=== PATIENT | female | born 1960 | race Caucasian/White ===

== ENCOUNTER → 2016-05-11 | Outpatient (CLI) | payer MEDICARE, OTHER, MEDICAID ==
[~2016-05-11] MED LIST: ACCURETIC 12.51 TAB PO; CETIRIZINE HCL10 MG PO; CLARINEX 5MG5 MG PO; CYMBALTA 20MG20 MG PO; FISH OIL 11600 MG/5; JANUMET 1000 MG1 TA1 PO; LEVOTHYROXINE100 MC1 PO; MAGNESIUM ELEM300 MG PO; NEURONTIN300 MG/CAP PO; PROBIOTIC1 EAC1 PO; RESTORIL30 M1 PO; SKELAXIN 800MG800 MG PO; TRAZODONE50 MG PO; ZETIA 10MG TAB10 MG PO
== END ==
LOC: RAD 08:28
DX: M25.512 Pain in left shoulder (principal); M25.511 Pain in right shoulder; W19.XXXA Unspecified fall, initial encounter

== ENCOUNTER → 2016-05-12 | Outpatient (CLI) | payer MEDICARE, OTHER, MEDICAID | LOC: LAB 14:41 | DX: E13.9 Other specified diabetes mellitus without complications (principal); E78.2 Mixed hyperlipidemia; E03.4 Atrophy of thyroid (acquired); K90.9 Intestinal malabsorption, unspecified; G63 Polyneuropathy in diseases classified elsewhere; M81.0 Age-related osteoporosis without current pathological fracture ==

== ENCOUNTER 2016-05-17 09:05 | Outpatient (RCR) | payer MEDICARE, OTHER, MEDICAID ==
[2015-12-02 18:34] VITALS: BP 111/55
== END 2016-07-22 15:03 | disposition home or self-care (01) ==
LOC: PT 09:05
DX: M47.812 Spondylosis without myelopathy or radiculopathy, cervical region (principal)

== ENCOUNTER → 2016-09-08 | Outpatient (CLI) | payer MEDICARE, MEDICAID ==
[2015-12-02 18:34] VITALS: BP 111/55
== END ==
LOC: RAD 08:57
DX: M48.8X2 Other specified spondylopathies, cervical region (principal)

== ENCOUNTER → 2016-11-10 | Outpatient (CLI) | payer MEDICARE, MEDICAID ==
[2015-12-02 18:34] VITALS: BP 111/55
== END ==
LOC: LAB 07:24
DX: E11.8 Type 2 diabetes mellitus with unspecified complications (principal); E03.9 Hypothyroidism, unspecified; M81.0 Age-related osteoporosis without current pathological fracture; E78.2 Mixed hyperlipidemia; G63 Polyneuropathy in diseases classified elsewhere

== ENCOUNTER → 2017-01-02 | Outpatient (CLI) | payer MEDICARE, MEDICAID ==
[2015-12-02 18:34] VITALS: BP 111/55
== END ==
LOC: RAD 17:07
DX: M25.571 Pain in right ankle and joints of right foot (principal); M79.671 Pain in right foot

== ENCOUNTER → 2017-01-12 | Outpatient (CLI) | payer MEDICARE ==
[2015-12-02 18:34] VITALS: BP 111/55
[2017-01-12 08:58] LABS: EOS # 0.2 (0.04-0.40); EOS % 4.1 % (1.0-5.0); HEMATOCRIT 40.3 % (37.0-47.0); HEMOGLOBIN 13.4 g/dL (12.5-16.0); LYMPH# 1.2 (1.50-4.00); MEAN CELL VOLUME 94 fl (78-100); MEAN CORPUSCULAR HEMOGLOBIN 31 pg (27-31); MEAN CORPUSCULAR HGB CONC 33 g/dL (33-37); MONO # 0.5 (0.20-0.80); PLATELET COUNT 267 K/mm3 (130-400); RED CELL DISTRIBUTION WIDTH 13.4 % (11.5-14.5); WHITE BLOOD COUNT 4.9 K/mm3 (4.8-10.8)
[2017-01-12 09:10] LABS: ALBUMIN 4.2 g/dL (3.5-5.0); BUN/CREATININE RATIO 25.2 (6.0-26.0); CALCIUM 10.3 mg/dL (8.4-10.2); POTASSIUM 5.1 mmol/L (3.6-5.0); TOTAL BILIRUBIN 0.6 mg/dL (0.2-1.3); TOTAL PROTEIN 7.8 g/dL (6.3-8.2)
== END ==
LOC: LAB 08:46
PROVIDERS: Internal Medicine
DX: E13.9 Other specified diabetes mellitus without complications (principal); M81.0 Age-related osteoporosis without current pathological fracture; M10.9 Gout, unspecified; E03.4 Atrophy of thyroid (acquired)

== ENCOUNTER 2017-03-17 07:36 | Emergency (ER) | payer MEDICARE, MEDICAID ==
[~2017-03-17] VITALS: Ht 177.8 cm; Wt 110.9 kg
[~2017-03-17 07:36] MED LIST changes: -ACCURETIC 12.51 TAB PO; +ACCURETIC 25 MG1 TAB PO; -CYMBALTA 20MG20 MG PO; +CYMBALTA60 M1 PO; +FISH OIL 1,0001 EAC1 PO; -FISH OIL 11600 MG/5; +GABAPENTIN TAB600 MG PO; -LEVOTHYROXINE100 MC1 PO; -NEURONTIN300 MG/CAP PO; +SYNTHROID0.15 MG PO
[2017-03-17 08:03] LABS: BASO # 0.1 (0.02-0.10); EOS # 0.1 (0.04-0.40); EOS % 2.5 % (1.0-5.0); HEMOGLOBIN 14.2 g/dL (12.5-16.0); LYMPH# 1.1 (1.50-4.00); MEAN CELL VOLUME 92 fl (78-100); MEAN CORPUSCULAR HEMOGLOBIN 31 pg (27-31); MEAN CORPUSCULAR HGB CONC 34 g/dL (33-37); MEAN PLATELET VOLUME 8.5 fl (7.4-10.4); MONO # 0.6 (0.20-0.80); NEU # 3.3 (1.40-6.50); PLATELET COUNT 295 K/mm3 (130-400); RED BLOOD COUNT 4.59 M/mm3 (4.10-5.30); RED CELL DISTRIBUTION WIDTH 13.8 % (11.5-14.5); WHITE BLOOD COUNT 5.2 K/mm3 (4.8-10.8)
[2017-03-17 08:17] LABS: ALBUMIN 4.4 g/dL (3.5-5.0); BUN/CREATININE RATIO 25.6 (6.0-26.0); CALCIUM 10.2 mg/dL (8.4-10.2); POTASSIUM 4.8 mmol/L (3.6-5.0); TOTAL BILIRUBIN 0.6 mg/dL (0.2-1.3); TOTAL PROTEIN 7.5 g/dL (6.3-8.2)
[2017-03-17] MEDS ORDERED: BACLOFEN20 MG PO (09:25)
[2017-03-17] MEDS ORDERED: LORAZEPAM0.5 M1 PO (09:27)
[2017-03-17] MEDS ORDERED: MORPHINE SULFAT15 M7 PO (10:16)
[2017-03-17 10:25] VITALS: BP 109/58
[2017-03-17] MEDS ORDERED: FENOFIBRATE160 MG PO (11:08)
[2017-03-17] MEDS ORDERED: ACID REDUCER 1150 MG PO (11:10)
[2017-03-17] MEDS ORDERED: VICTOZA 3-0.6 MG/0.1 SQ (11:11)
[2017-03-17] MEDS ORDERED: LINZESS145 MCG (11:13)
[2017-03-17] MEDS ORDERED: GLUCOPHAGE PO (11:13)
[2017-03-17] MEDS ORDERED: VITAMIN C PURE500 M1 (11:14)
[2017-03-17] MEDS ORDERED: IRON90 MG (11:15)
[2017-03-17] MEDS ORDERED: ZYLOPRIM 100MG100 MG PO (11:16)
[2017-03-17] MEDS ORDERED: ASPIRIN E.C. 8181 MG (11:17)
[2017-03-17] MEDS ORDERED: ONE DAILY ESSE1 EACH (11:17)
== END 2017-03-17 10:30 | disposition home or self-care (01) ==
LOC: ED 07:36
PROVIDERS: Physician Assistant
DX: M54.5 Low back pain (principal); S40.011A Contusion of right shoulder, initial encounter; S50.812A Abrasion of left forearm, initial encounter; S70.01XA Contusion of right hip, initial encounter; W01.10XA Fall on same level from slipping, tripping and stumbling with subsequent striking against unspecified object, initial encounter; R11.0 Nausea; Y92.009 Unspecified place in unspecified non-institutional (private) residence as the place of occurrence of the external cause; E11.9 Type 2 diabetes mellitus without complications; K21.9 Gastro-esophageal reflux disease without esophagitis; E78.5 Hyperlipidemia, unspecified; E03.9 Hypothyroidism, unspecified; G47.33 Obstructive sleep apnea (adult) (pediatric); E75.6 Lipid storage disorder, unspecified; M81.0 Age-related osteoporosis without current pathological fracture; Z79.84 Long term (current) use of oral hypoglycemic drugs; Z88.5 Allergy status to narcotic agent
CPT/HCPCS: J1885; J2270; J2550

== ENCOUNTER → 2017-04-13 | Outpatient (CLI) | payer MEDICARE ==
[2017-03-17 10:25] VITALS: BP 109/58
[~2017-04-13] MED LIST changes: +ACID REDUCER 1150 MG PO; +ASPIRIN E.C. 8181 MG; +BACLOFEN20 MG PO; +FENOFIBRATE160 MG PO; +GLUCOPHAGE PO; +IRON90 MG; +LINZESS145 MCG; +LORAZEPAM0.5 M1 PO; +MORPHINE SULFAT15 M7 PO; +ONE DAILY ESSE1 EACH; +VICTOZA 3-0.6 MG/0.1 SQ; +VITAMIN C PURE500 M1; +ZYLOPRIM 100MG100 MG PO
[2017-04-13 09:23] LABS: BASO # 0.1 (0.02-0.10); EOS # 0.2 (0.04-0.40); EOS % 3.9 % (1.0-5.0); HEMATOCRIT 42.4 % (37.0-47.0); LYMPH# 1.3 (1.50-4.00); MEAN CELL VOLUME 92 fl (78-100); MEAN CORPUSCULAR HEMOGLOBIN 30 pg (27-31); MEAN CORPUSCULAR HGB CONC 33 g/dL (33-37); MONO # 0.6 (0.20-0.80); PLATELET COUNT 281 K/mm3 (130-400); RED BLOOD COUNT 4.61 M/mm3 (4.10-5.30); RED CELL DISTRIBUTION WIDTH 13.8 % (11.5-14.5); WHITE BLOOD COUNT 5.1 K/mm3 (4.8-10.8)
[2017-04-13 09:36] LABS: ALBUMIN 4.4 g/dL (3.5-5.0); CALCIUM 9.8 mg/dL (8.4-10.2); POTASSIUM 4.8 mmol/L (3.6-5.0); TOTAL BILIRUBIN 0.6 mg/dL (0.2-1.3)
[2017-04-13 10:27] LABS: ERYTHROCYTE SEDIMENTATION RATE 18 mm/hr (0-30)
== END ==
LOC: LAB 09:10
PROVIDERS: Internal Medicine
DX: E13.9 Other specified diabetes mellitus without complications (principal); M81.0 Age-related osteoporosis without current pathological fracture; G63 Polyneuropathy in diseases classified elsewhere; E78.2 Mixed hyperlipidemia; E03.9 Hypothyroidism, unspecified; Z88.5 Allergy status to narcotic agent

== ENCOUNTER → 2017-07-18 | Outpatient (CLI) | payer MEDICARE | LOC: RAD 07:33 | DX: Z13.820 Encounter for screening for osteoporosis (principal); Z88.5 Allergy status to narcotic agent ==

== ENCOUNTER → 2017-07-18 | Outpatient (CLI) | payer MEDICARE | LOC: MAMMO 07:34 → RAD 08:30 | DX: Z12.31 Encounter for screening mammogram for malignant neoplasm of breast (principal); R92.8 Other abnormal and inconclusive findings on diagnostic imaging of breast; Z88.5 Allergy status to narcotic agent ==

== ENCOUNTER → 2017-08-25 | Outpatient (CLI) | payer MEDICARE ==
[2017-08-25 09:45] LABS: EOS # 0.2 (0.04-0.40); EOS % 3.7 % (1.0-5.0); HEMATOCRIT 41.3 % (37.0-47.0); HEMOGLOBIN 13.5 g/dL (12.5-16.0); LYMPH# 1.1 (1.50-4.00); MEAN CELL VOLUME 94 fl (78-100); MEAN CORPUSCULAR HEMOGLOBIN 31 pg (27-31); MEAN CORPUSCULAR HGB CONC 33 g/dL (33-37); MONO # 0.5 (0.20-0.80); NEU # 2.8 (1.40-6.50); PLATELET COUNT 260 K/mm3 (130-400); RED BLOOD COUNT 4.41 M/mm3 (4.10-5.30); RED CELL DISTRIBUTION WIDTH 13.5 % (11.5-14.5); WHITE BLOOD COUNT 4.6 K/mm3 (4.8-10.8)
[2017-08-25 09:55] LABS: ALBUMIN 4.3 g/dL (3.5-5.0); BUN/CREATININE RATIO 15.5 (6.0-26.0); CALCIUM 9.6 mg/dL (8.4-10.2); POTASSIUM 4.8 mmol/L (3.6-5.0); TOTAL BILIRUBIN 0.5 mg/dL (0.2-1.3); TOTAL PROTEIN 8.1 g/dL (6.3-8.2)
[2017-08-25 10:24] LABS: URINE APPEARANCE HAZY; URINE BILIRUBIN NEGATIVE (NEGATIVE); URINE BLOOD NEGATIVE (NEGATIVE); URINE COLOR YELLOW; URINE GLUCOSE NEGATIVE (NEGATIVE); URINE KETONE NEGATIVE (NEGATIVE); URINE LEUKOCYTE ESTERASE 2+ (NEGATIVE); URINE MUCUS PRESENT (NOT PRESENT); URINE NITRATE NEGATIVE (NEGATIVE); URINE PROTEIN(semi-quant) NEGATIVE (NEGATIVE); URINE UROBILINOGEN NORMAL (NORMAL)
[2017-08-25 11:16] LABS: ERYTHROCYTE SEDIMENTATION RATE 22 mm/hr (0-30)
== END ==
LOC: LAB 09:25
PROVIDERS: Internal Medicine
DX: Z12.11 Encounter for screening for malignant neoplasm of colon (principal); E11.9 Type 2 diabetes mellitus without complications; M81.0 Age-related osteoporosis without current pathological fracture; E78.2 Mixed hyperlipidemia; E03.9 Hypothyroidism, unspecified

== ENCOUNTER → 2017-08-29 | Outpatient (CLI) | payer MEDICARE | LOC: RAD 14:41 | DX: M25.851 Other specified joint disorders, right hip (principal); M25.852 Other specified joint disorders, left hip; I87.8 Other specified disorders of veins; M77.31 Calcaneal spur, right foot; M77.32 Calcaneal spur, left foot ==

== ENCOUNTER → 2017-11-20 | Outpatient (CLI) | payer MEDICARE | LOC: RAD 10:36 | DX: M79.641 Pain in right hand (principal) ==

== ENCOUNTER → 2018-01-01 | Outpatient (CLI) | payer MEDICARE ==
[2018-01-01 09:34] LABS: EOS # 0.1 (0.04-0.40); HEMOGLOBIN 12.9 g/dL (12.5-16.0); LYMPH# 1.1 (1.50-4.00); MEAN CELL VOLUME 94 fl (78-100); MEAN CORPUSCULAR HEMOGLOBIN 31 pg (27-31); MEAN CORPUSCULAR HGB CONC 33 g/dL (33-37); MEAN PLATELET VOLUME 8.9 fl (7.4-10.4); MONO # 0.5 (0.20-0.80); NEU # 2.5 (1.40-6.50); PLATELET COUNT 272 K/mm3 (130-400); RED BLOOD COUNT 4.16 M/mm3 (4.10-5.30); RED CELL DISTRIBUTION WIDTH 13.1 % (11.5-14.5); WHITE BLOOD COUNT 4.3 K/mm3 (4.8-10.8)
[2018-01-01 09:44] LABS: ALBUMIN 4.1 g/dL (3.5-5.0); CALCIUM 9.5 mg/dL (8.4-10.2); POTASSIUM 4.9 mmol/L (3.6-5.0); TOTAL BILIRUBIN 0.6 mg/dL (0.2-1.3); TOTAL PROTEIN 7.2 g/dL (6.3-8.2)
[2018-01-01 10:49] LABS: URINE APPEARANCE HAZY; URINE COLOR YELLOW; URINE PROTEIN(semi-quant) TRACE mg/dL (NEGATIVE)
[2018-01-01 10:50] LABS: URINE BILIRUBIN NEGATIVE (NEGATIVE); URINE GLUCOSE NEGATIVE (NEGATIVE); URINE KETONE NEGATIVE (NEGATIVE); URINE NITRATE NEGATIVE (NEGATIVE); URINE UROBILINOGEN NORMAL (NORMAL)
[2018-01-01 10:51] LABS: URINE BLOOD TRACE (NEGATIVE); URINE LEUKOCYTE ESTERASE 2+ (NEGATIVE); URINE WBC 16-30 /hpf (0-3)
[2018-01-01 10:52] LABS: URINE MUCUS PRESENT (NOT PRESENT)
[2018-01-01 12:09] LABS: ERYTHROCYTE SEDIMENTATION RATE 10 mm/hr (0-30)
== END ==
LOC: LAB 08:09
PROVIDERS: Internal Medicine
DX: Z12.11 Encounter for screening for malignant neoplasm of colon (principal); E11.9 Type 2 diabetes mellitus without complications; E78.2 Mixed hyperlipidemia; E03.9 Hypothyroidism, unspecified; M81.0 Age-related osteoporosis without current pathological fracture

== ENCOUNTER → 2018-01-02 | Outpatient (CLI) | payer MEDICARE ==
[2018-01-02 09:42] LABS: URINE APPEARANCE HAZY; URINE COLOR YELLOW
[2018-01-02 09:43] LABS: URINE BILIRUBIN NEGATIVE (NEGATIVE); URINE BLOOD NEGATIVE (NEGATIVE); URINE GLUCOSE NEGATIVE (NEGATIVE); URINE KETONE NEGATIVE (NEGATIVE); URINE LEUKOCYTE ESTERASE 1+ (NEGATIVE); URINE NITRATE NEGATIVE (NEGATIVE); URINE PROTEIN(semi-quant) TRACE mg/dL (NEGATIVE); URINE UROBILINOGEN NORMAL (NORMAL)
[2018-01-02 09:44] LABS: URINE MUCUS PRESENT (NOT PRESENT)
== END ==
LOC: LAB 08:15
PROVIDERS: Internal Medicine
DX: N39.0 Urinary tract infection, site not specified (principal)

== ENCOUNTER → 2018-01-04 | Outpatient (CLI) | payer MEDICARE | LOC: LAB 07:21 | DX: Z12.11 Encounter for screening for malignant neoplasm of colon (principal) ==

== ENCOUNTER → 2018-04-03 | Outpatient (CLI) | payer MEDICARE | LOC: LAB 08:10 | DX: E11.9 Type 2 diabetes mellitus without complications (principal) ==

== ENCOUNTER 2018-04-18 16:03 | Observation (INO) | payer MEDICARE ==
[~2018-04-18] VITALS: Ht 172.7 cm; Wt 120.8 kg
[2018-04-18] MEDS ORDERED: SAXENDA3 MG/0.5 M SQ (16:31)
[2018-04-18] MEDS ORDERED: ACETAMINOPHEN-H1 TA1 PO (16:32)
[2018-04-18] MEDS ORDERED: LYRICA 25MG CAP25 MG PO (16:33)
[2018-04-18 16:49] LABS: CALCIUM 9.4 mg/dL (8.4-10.2); POTASSIUM 3.8 mmol/L (3.6-5.0)
[2018-04-18 22:08] VITALS: BP 144/78
[2018-04-18 22:12] VITALS: BP 144/78
[2018-04-18 23:00] VITALS: BP 144/78
[2018-04-18] MEDS ORDERED: MEDI-FIRST ASP325 MG PO (23:37)
[2018-04-18] MEDS ORDERED: NATURE'S BLEN2000 IU PO (23:43)
[2018-04-19 03:22] VITALS: BP 120/73
[2018-04-19 06:32] VITALS: BP 120/77
[2018-04-19 11:01] VITALS: BP 125/73
[2018-04-19 15:04] VITALS: BP 109/62
[2018-04-19 18:19] VITALS: BP 124/70
[2018-04-19 23:50] VITALS: BP 119/68
[2018-04-20 03:30] VITALS: BP 139/78
[2018-04-20 06:21] VITALS: BP 135/74
[2018-04-20 11:30] VITALS: BP 122/72
[2018-04-20] MEDS ORDERED: CYCLOBENZAPRINE10 M1 PO (11:39)
[2018-04-20] MEDS ORDERED: ACETAMINOPHEN-H1 TA2 PO (11:40)
[2018-04-20 14:15] VITALS: BP 113/52
== END 2018-04-20 14:28 | disposition home health service (06) ==
LOC: ED 16:03 → MED/SURG 21:22
PROVIDERS: ADMIT Physician Assistant
DX: S76.311A Strain of muscle, fascia and tendon of the posterior muscle group at thigh level, right thigh, initial encounter (principal); E11.42 Type 2 diabetes mellitus with diabetic polyneuropathy; R53.82 Chronic fatigue, unspecified; G89.29 Other chronic pain; M54.9 Dorsalgia, unspecified; G47.33 Obstructive sleep apnea (adult) (pediatric); E03.9 Hypothyroidism, unspecified; M32.9 Systemic lupus erythematosus, unspecified; E78.5 Hyperlipidemia, unspecified; M19.90 Unspecified osteoarthritis, unspecified site; Z79.84 Long term (current) use of oral hypoglycemic drugs; Z79.82 Long term (current) use of aspirin; Z88.5 Allergy status to narcotic agent; Z90.49 Acquired absence of other specified parts of digestive tract; W00.0XXA Fall on same level due to ice and snow, initial encounter
CPT/HCPCS: G0378; J1170; J1885; J2060

== ENCOUNTER → 2018-08-02 | Outpatient (CLI) | payer MEDICARE ==
[~2018-08-02] MED LIST changes: +ACETAMINOPHEN-H1 TA1 PO; +ACETAMINOPHEN-H1 TA2 PO; +CYCLOBENZAPRINE10 M1 PO; +LYRICA 25MG CAP25 MG PO; +MEDI-FIRST ASP325 MG PO; +NATURE'S BLEN2000 IU PO; +SAXENDA3 MG/0.5 M SQ
== END ==
LOC: LAB 10:16
DX: M81.0 Age-related osteoporosis without current pathological fracture (principal); E11.9 Type 2 diabetes mellitus without complications

== ENCOUNTER → 2018-08-14 | Outpatient (CLI) | payer MEDICARE | LOC: RAD 10:28 | DX: M25.511 Pain in right shoulder (principal); W19.XXXA Unspecified fall, initial encounter ==

== ENCOUNTER → 2018-10-09 | Outpatient (CLI) | payer MEDICARE ==
[2018-10-09 10:35] LABS: URINE APPEARANCE HAZY; URINE BILIRUBIN NEGATIVE (NEGATIVE); URINE BLOOD 50 ery/uL (NEGATIVE); URINE COLOR YELLOW; URINE GLUCOSE NEGATIVE (NEGATIVE); URINE KETONE NEGATIVE (NEGATIVE); URINE LEUKOCYTE ESTERASE 1+ (NEGATIVE); URINE NITRATE NEGATIVE (NEGATIVE); URINE PROTEIN(semi-quant) 1+ mg/dL (NEGATIVE); URINE UROBILINOGEN NORMAL (NORMAL)
[2018-10-09 10:36] LABS: URINE WBC 16-30 /hpf (0-3)
== END ==
LOC: LAB 10:08
PROVIDERS: Internal Medicine
DX: N39.0 Urinary tract infection, site not specified (principal)

== ENCOUNTER → 2019-01-08 | Outpatient (CLI) | payer MEDICARE | LOC: MAMMO 14:30 | DX: Z12.31 Encounter for screening mammogram for malignant neoplasm of breast (principal) ==

== ENCOUNTER → 2019-01-10 | Outpatient (CLI) | payer MEDICARE | LOC: RAD 07:13 | DX: N28.1 Cyst of kidney, acquired (principal) ==

== ENCOUNTER → 2019-01-29 | Outpatient (CLI) | payer MEDICARE | LOC: RAD 08:59 | DX: R06.02 Shortness of breath (principal) ==

== ENCOUNTER → 2019-05-14 | Outpatient (CLI) | payer MEDICARE ==
[2019-05-14 08:33] LABS: POTASSIUM 4.9 mmol/L (3.5-5.1)
[2019-05-14 08:34] LABS: CALCIUM 9.2 mg/dL (8.3-10.5)
[2019-05-14 08:36] LABS: TOTAL PROTEIN 7.2 g/dL (6.4-8.3)
[2019-05-14 08:37] LABS: TOTAL BILIRUBIN 0.4 mg/dL (0.2-1.2)
== END ==
LOC: LAB 07:59
PROVIDERS: Internal Medicine
DX: E11.9 Type 2 diabetes mellitus without complications (principal)

== ENCOUNTER → 2019-09-21 | Outpatient (CLI) | payer MEDICARE, MEDICAID | LOC: RAD 09:03 | DX: M19.071 Primary osteoarthritis, right ankle and foot (principal) ==

== ENCOUNTER → 2019-10-28 | Outpatient (CLI) | payer MEDICARE, MEDICAID ==
[2019-10-28 09:48] LABS: EOS # 0.1 (0.04-0.40); EOS % 2.2 % (1.0-5.0); HEMATOCRIT 39.3 % (37.0-47.0); MEAN CELL VOLUME 91 fl (78-100); MEAN CORPUSCULAR HEMOGLOBIN 30 pg (27-31); MEAN CORPUSCULAR HGB CONC 33 g/dL (33-37); MEAN PLATELET VOLUME 8.3 fl (7.4-10.4); MONO # 0.4 (0.20-0.80); NEU # 2.2 (1.40-6.50); PLATELET COUNT 246 K/mm3 (130-400); RED BLOOD COUNT 4.34 M/mm3 (4.10-5.30); RED CELL DISTRIBUTION WIDTH 13.5 % (11.5-14.5); WHITE BLOOD COUNT 3.6 K/mm3 (4.8-10.8)
[2019-10-28 09:55] LABS: ALBUMIN 4.1 g/dL (3.5-5.0); POTASSIUM 4.7 mmol/L (3.5-5.1)
[2019-10-28 09:56] LABS: CALCIUM 10.1 mg/dL (8.3-10.5)
[2019-10-28 09:57] LABS: TOTAL PROTEIN 7.6 g/dL (6.4-8.3)
[2019-10-28 09:59] LABS: TOTAL BILIRUBIN 0.4 mg/dL (0.2-1.2)
[2019-10-28 10:04] LABS: MAGNESIUM 1.61 mg/dL (1.60-2.60)
[2019-10-28 10:54] LABS: ERYTHROCYTE SEDIMENTATION RATE 13 mm/hr (0-30)
== END ==
LOC: LAB 09:35
PROVIDERS: Internal Medicine
DX: E11.40 Type 2 diabetes mellitus with diabetic neuropathy, unspecified (principal); E78.2 Mixed hyperlipidemia; M81.0 Age-related osteoporosis without current pathological fracture; E03.9 Hypothyroidism, unspecified

== ENCOUNTER → 2019-11-28 | Outpatient (CLI) | payer MEDICARE, MEDICAID ==
[2019-11-28 09:36] LABS: ALBUMIN 4.2 g/dL (3.5-5.0); POTASSIUM 4.8 mmol/L (3.5-5.1)
[2019-11-28 09:37] LABS: CALCIUM 9.7 mg/dL (8.3-10.5)
[2019-11-28 09:39] LABS: TOTAL PROTEIN 7.5 g/dL (6.4-8.3)
[2019-11-28 09:40] LABS: TOTAL BILIRUBIN 0.3 mg/dL (0.2-1.2)
[2019-11-28 10:11] LABS: EOS # 0.1 (0.04-0.40); EOS % 3.8 % (1.0-5.0); HEMATOCRIT 40.7 % (37.0-47.0); HEMOGLOBIN 13.3 g/dL (12.5-16.0); LYMPH# 0.9 (1.50-4.00); MEAN CELL VOLUME 90 fl (78-100); MEAN CORPUSCULAR HEMOGLOBIN 30 pg (27-31); MEAN CORPUSCULAR HGB CONC 33 g/dL (33-37); MONO # 0.3 (0.20-0.80); NEU # 1.7 (1.40-6.50); PLATELET COUNT 260 K/mm3 (130-400); RED CELL DISTRIBUTION WIDTH 13.5 % (11.5-14.5); WHITE BLOOD COUNT 3.1 K/mm3 (4.8-10.8)
== END ==
LOC: RAD 09:17
PROVIDERS: Nurse Practitioner
DX: M47.814 Spondylosis without myelopathy or radiculopathy, thoracic region (principal); Z87.09 Personal history of other diseases of the respiratory system

== ENCOUNTER → 2020-01-29 | Outpatient (CLI) | payer MEDICARE, MEDICAID | LOC: RAD 15:05 → MAMMO 16:00 | DX: Z13.820 Encounter for screening for osteoporosis (principal); Z12.31 Encounter for screening mammogram for malignant neoplasm of breast; M81.0 Age-related osteoporosis without current pathological fracture ==

== ENCOUNTER → 2020-01-29 | Outpatient (CLI) | payer MEDICARE, MEDICAID | LOC: MAMMO 15:04 | DX: Z12.31 Encounter for screening mammogram for malignant neoplasm of breast (principal); M81.0 Age-related osteoporosis without current pathological fracture ==

== ENCOUNTER → 2020-02-24 | Outpatient (CLI) | payer MEDICARE, MEDICAID | LOC: LAB 12:57 | DX: U07.1 COVID-19 (principal) ==

== ENCOUNTER → 2020-04-14 | Outpatient (CLI) | payer MEDICARE, MEDICAID ==
[2020-04-14 15:19] LABS: ALBUMIN 3.9 g/dL (3.5-5.0); POTASSIUM 4.9 mmol/L (3.5-5.1)
[2020-04-14 15:21] LABS: CALCIUM 10.6 mg/dL (8.3-10.5)
[2020-04-14 15:22] LABS: TOTAL PROTEIN 7.8 g/dL (6.4-8.3)
[2020-04-14 15:24] LABS: TOTAL BILIRUBIN 0.6 mg/dL (0.2-1.2)
[2020-04-14 15:25] LABS: BASO # 0.1 (0.02-0.10); EOS # 0.1 (0.04-0.40); EOS % 1.6 % (1.0-5.0); HEMATOCRIT 37.4 % (37.0-47.0); HEMOGLOBIN 11.7 g/dL (12.5-16.0); LYMPH# 1.4 (1.50-4.00); MEAN CELL VOLUME 90 fl (78-100); MEAN CORPUSCULAR HEMOGLOBIN 28 pg (27-31); MEAN CORPUSCULAR HGB CONC 31 g/dL (33-37); MEAN PLATELET VOLUME 8.2 fl (7.4-10.4); MONO # 0.7 (0.20-0.80); NEU # 3.8 (1.40-6.50); PLATELET COUNT 463 K/mm3 (130-400); RED BLOOD COUNT 4.17 M/mm3 (4.10-5.30); RED CELL DISTRIBUTION WIDTH 16.1 % (11.5-14.5); WHITE BLOOD COUNT 6.1 K/mm3 (4.8-10.8)
[2020-04-14 15:28] LABS: MAGNESIUM 1.65 mg/dL (1.60-2.60)
== END ==
LOC: LAB 14:44
PROVIDERS: Internal Medicine
DX: E11.9 Type 2 diabetes mellitus without complications (principal)

== ENCOUNTER → 2020-08-27 | Outpatient (CLI) | payer MEDICARE, MEDICAID ==
[2020-08-27 11:40] LABS: BASO # 0.05 (0.02-0.10); EOS # 0.12 (0.04-0.40); EOS % 2.5 % (1.0-5.0); HEMOGLOBIN 13.2 g/dL (12.5-16.0); LYMPH# 1.37 (1.50-4.00); MEAN CELL VOLUME 87 fl (78-100); MEAN CORPUSCULAR HEMOGLOBIN 29 pg (27-31); MEAN CORPUSCULAR HGB CONC 33 g/dL (33-37); MEAN PLATELET VOLUME 8.5 fl (7.4-10.4); MONO # 0.53 (0.20-0.80); NEU # 2.77 (1.40-6.50); PLATELET COUNT 321 K/mm3 (130-400); RED BLOOD COUNT 4.61 M/mm3 (4.10-5.30); RED CELL DISTRIBUTION WIDTH 15.3 % (11.5-14.5); WHITE BLOOD COUNT 4.9 K/mm3 (4.8-10.8)
[2020-08-27 11:42] LABS: POTASSIUM 5.1 mmol/L (3.5-5.1)
[2020-08-27 11:43] LABS: CALCIUM 9.8 mg/dL (8.3-10.5)
[2020-08-27 11:44] LABS: TOTAL PROTEIN 7.9 g/dL (6.4-8.3)
[2020-08-27 11:46] LABS: TOTAL BILIRUBIN 0.4 mg/dL (0.2-1.2)
== END ==
LOC: LAB 11:17
PROVIDERS: Internal Medicine
DX: E78.2 Mixed hyperlipidemia (principal); K90.9 Intestinal malabsorption, unspecified; E03.4 Atrophy of thyroid (acquired); E11.9 Type 2 diabetes mellitus without complications

== ENCOUNTER → 2020-09-08 | Outpatient (CLI) | payer MEDICARE, MEDICAID | LOC: RAD 07:31 | DX: M67.872 Other specified disorders of synovium, left ankle and foot (principal); M77.52 Other enthesopathy of left foot and ankle ==

== ENCOUNTER → 2020-12-01 | Outpatient (CLI) | payer MEDICARE, MEDICAID ==
[2020-12-01 07:53] LABS: BASO # 0.03 (0.02-0.10); EOS # 0.13 (0.04-0.40); EOS % 3.4 % (1.0-5.0); HEMATOCRIT 40.7 % (37.0-47.0); HEMOGLOBIN 13.5 g/dL (12.5-16.0); LYMPH# 1.08 (1.50-4.00); MEAN CELL VOLUME 91 fl (78-100); MEAN CORPUSCULAR HEMOGLOBIN 30 pg (27-31); MEAN CORPUSCULAR HGB CONC 33 g/dL (33-37); MEAN PLATELET VOLUME 8.6 fl (7.4-10.4); MONO # 0.38 (0.20-0.80); NEU # 2.19 (1.40-6.50); PLATELET COUNT 257 K/mm3 (130-400); RED BLOOD COUNT 4.47 M/mm3 (4.10-5.30); RED CELL DISTRIBUTION WIDTH 13.2 % (11.5-14.5); WHITE BLOOD COUNT 3.8 K/mm3 (4.8-10.8)
[2020-12-01 07:57] LABS: ALBUMIN 3.8 g/dL (3.5-5.0); POTASSIUM 4.7 mmol/L (3.5-5.1)
[2020-12-01 07:59] LABS: CALCIUM 10.1 mg/dL (8.3-10.5)
[2020-12-01 08:00] LABS: TOTAL PROTEIN 7.5 g/dL (6.4-8.3)
[2020-12-01 08:02] LABS: TOTAL BILIRUBIN 0.3 mg/dL (0.2-1.2)
== END ==
LOC: LAB 07:35
PROVIDERS: Internal Medicine
DX: E11.9 Type 2 diabetes mellitus without complications (principal); K90.9 Intestinal malabsorption, unspecified

== ENCOUNTER → 2021-01-13 | Outpatient (CLI) | payer MEDICARE, MEDICAID | LOC: RAD 08:50 | DX: M19.072 Primary osteoarthritis, left ankle and foot (principal) ==

== ENCOUNTER → 2021-04-19 | Outpatient (CLI) | payer MEDICARE, MEDICAID ==
[2021-04-19 11:19] LABS: BASO # 0.04 K/mm3 (0.02-0.10); EOS # 0.16 K/mm3 (0.04-0.40); EOS % 2.8 % (1.0-5.0); HEMOGLOBIN 13.3 g/dL (12.5-16.0); LYMPH# 1.29 K/mm3 (1.50-4.00); MEAN CELL VOLUME 92 fl (78-100); MEAN CORPUSCULAR HEMOGLOBIN 31 pg (27-31); MEAN CORPUSCULAR HGB CONC 33 g/dL (33-37); MEAN PLATELET VOLUME 9.2 fl (7.4-10.4); MONO # 0.43 K/mm3 (0.20-0.80); NEU # 3.65 K/mm3 (1.40-6.50); PLATELET COUNT 287 K/mm3 (130-400); RED BLOOD COUNT 4.35 M/mm3 (4.10-5.30); RED CELL DISTRIBUTION WIDTH 13.1 % (11.5-14.5); WHITE BLOOD COUNT 5.6 K/mm3 (4.8-10.8)
[2021-04-19 11:23] LABS: ALBUMIN 3.8 g/dL (3.5-5.0); POTASSIUM 4.7 mmol/L (3.5-5.1)
[2021-04-19 11:24] LABS: CALCIUM 9.7 mg/dL (8.3-10.5)
[2021-04-19 11:26] LABS: TOTAL PROTEIN 7.3 g/dL (6.4-8.3)
[2021-04-19 11:28] LABS: TOTAL BILIRUBIN 0.4 mg/dL (0.2-1.2)
[2021-04-19 13:25] LABS: URINE APPEARANCE CLEAR; URINE BILIRUBIN NEGATIVE (NEGATIVE); URINE BLOOD NEGATIVE (NEGATIVE); URINE COLOR YELLOW; URINE KETONE NEGATIVE (NEGATIVE); URINE LEUKOCYTE ESTERASE 1+ (NEGATIVE); URINE NITRATE NEGATIVE (NEGATIVE); URINE PROTEIN(semi-quant) TRACE (NEGATIVE); URINE UROBILINOGEN NORMAL (NORMAL); URINE WBC 16-30 /hpf (0-3)
[2021-04-19 13:26] LABS: URINE MUCUS PRESENT (NOT PRESENT)
== END ==
LOC: LAB 09:13
PROVIDERS: Internal Medicine
DX: E03.4 Atrophy of thyroid (acquired) (principal); E13.628 Other specified diabetes mellitus with other skin complications; K90.9 Intestinal malabsorption, unspecified; E78.2 Mixed hyperlipidemia; M19.041 Primary osteoarthritis, right hand; M19.042 Primary osteoarthritis, left hand; M32.19 Other organ or system involvement in systemic lupus erythematosus

== ENCOUNTER → 2021-05-10 | Outpatient (CLI) | payer MEDICARE, MEDICAID | LOC: LAB 14:53 | DX: Z01.812 Encounter for preprocedural laboratory examination (principal) ==

== ENCOUNTER → 2021-07-07 | Outpatient (CLI) | payer MEDICARE, MEDICAID | LOC: LAB 10:52 | DX: M54.9 Dorsalgia, unspecified (principal); E11.42 Type 2 diabetes mellitus with diabetic polyneuropathy; Z79.899 Other long term (current) drug therapy ==

== ENCOUNTER → 2021-07-30 | Outpatient (CLI) | payer MEDICARE, MEDICAID ==
[2021-07-30 09:52] LABS: POTASSIUM 5.1 mmol/L (3.5-5.1)
[2021-07-30 09:53] LABS: CALCIUM 9.9 mg/dL (8.3-10.5)
[2021-07-30 09:54] LABS: TOTAL PROTEIN 7.3 g/dL (6.4-8.3)
[2021-07-30 09:55] LABS: BASO # 0.05 K/mm3 (0.02-0.10); EOS # 0.13 K/mm3 (0.04-0.40); EOS % 3.4 % (1.0-5.0); HEMATOCRIT 40.6 % (37.0-47.0); HEMOGLOBIN 13.4 g/dL (12.5-16.0); LYMPH# 1.13 K/mm3 (1.50-4.00); MEAN CELL VOLUME 92 fl (78-100); MEAN CORPUSCULAR HEMOGLOBIN 31 pg (27-31); MEAN CORPUSCULAR HGB CONC 33 g/dL (33-37); MEAN PLATELET VOLUME 9.7 fl (7.4-10.4); MONO # 0.34 K/mm3 (0.20-0.80); PLATELET COUNT 232 K/mm3 (130-400); RED CELL DISTRIBUTION WIDTH 12.9 % (11.5-14.5); WHITE BLOOD COUNT 3.9 K/mm3 (4.8-10.8)
[2021-07-30 09:56] LABS: TOTAL BILIRUBIN 0.3 mg/dL (0.2-1.2)
== END ==
LOC: LAB 08:41
PROVIDERS: Internal Medicine
DX: E13.628 Other specified diabetes mellitus with other skin complications (principal); E03.4 Atrophy of thyroid (acquired); E78.2 Mixed hyperlipidemia; G63 Polyneuropathy in diseases classified elsewhere; M79.671 Pain in right foot; K90.9 Intestinal malabsorption, unspecified; N28.1 Cyst of kidney, acquired; E66.9 Obesity, unspecified

== ENCOUNTER → 2021-08-02 | Outpatient (CLI) | payer MEDICARE, MEDICAID | LOC: RAD 12:31 | DX: N28.1 Cyst of kidney, acquired (principal) ==

== ENCOUNTER → 2021-10-29 | Outpatient (CLI) | payer MEDICARE, MEDICAID ==
[2021-10-29 09:11] LABS: POTASSIUM 4.7 mmol/L (3.5-5.1)
[2021-10-29 09:13] LABS: CALCIUM 9.7 mg/dL (8.3-10.5)
[2021-10-29 09:14] LABS: TOTAL PROTEIN 7.1 g/dL (6.4-8.3)
[2021-10-29 09:16] LABS: TOTAL BILIRUBIN 0.3 mg/dL (0.2-1.2)
== END ==
LOC: LAB 08:46
PROVIDERS: Internal Medicine
DX: E13.628 Other specified diabetes mellitus with other skin complications (principal); K90.9 Intestinal malabsorption, unspecified; G63 Polyneuropathy in diseases classified elsewhere; E78.2 Mixed hyperlipidemia; M79.671 Pain in right foot; E03.4 Atrophy of thyroid (acquired); N28.1 Cyst of kidney, acquired; E66.9 Obesity, unspecified; M81.0 Age-related osteoporosis without current pathological fracture

== ENCOUNTER → 2021-12-14 | Outpatient (CLI) | payer MEDICARE, MEDICAID ==
[2021-12-14 14:32] LABS: BASO # 0.04 K/mm3 (0.02-0.10); EOS % 2.5 % (1.0-5.0); HEMATOCRIT 39.1 % (37.0-47.0); LYMPH# 0.98 K/mm3 (1.50-4.00); MEAN CELL VOLUME 92 fl (78-100); MEAN CORPUSCULAR HEMOGLOBIN 31 pg (27-31); MEAN CORPUSCULAR HGB CONC 33 g/dL (33-37); MEAN PLATELET VOLUME 8.9 fl (7.4-10.4); MONO # 0.41 K/mm3 (0.20-0.80); NEU # 2.53 K/mm3 (1.40-6.50); PLATELET COUNT 223 K/mm3 (130-400); RED BLOOD COUNT 4.25 M/mm3 (4.10-5.30); RED CELL DISTRIBUTION WIDTH 13.5 % (11.5-14.5); WHITE BLOOD COUNT 4.1 K/mm3 (4.8-10.8)
[2021-12-14 14:51] LABS: ALBUMIN 3.7 g/dL (3.5-5.0); POTASSIUM 4.4 mmol/L (3.5-5.1)
[2021-12-14 14:52] LABS: CALCIUM 9.4 mg/dL (8.3-10.5)
[2021-12-14 14:55] LABS: TOTAL BILIRUBIN 0.4 mg/dL (0.2-1.2)
== END ==
LOC: LAB 14:11
PROVIDERS: Nurse Practitioner Family
DX: L03.119 Cellulitis of unspecified part of limb (principal); M77.32 Calcaneal spur, left foot

== ENCOUNTER → 2022-04-26 | Outpatient (CLI) | payer MEDICARE, MEDICAID ==
[~2022-04-26] MED LIST changes: +PROVENTIL0.09 MG/A1 IH; +TAMIFLU 75MG75 MG PO
[2022-04-26 07:43] LABS: ALBUMIN 3.8 g/dL (3.5-5.0)
[2022-04-26 07:44] LABS: POTASSIUM 4.7 mmol/L (3.5-5.1)
[2022-04-26 07:45] LABS: BASO # 0.04 K/mm3 (0.02-0.10); CALCIUM 10.1 mg/dL (8.3-10.5); EOS # 0.17 K/mm3 (0.04-0.40); EOS % 4.7 % (1.0-5.0); HEMATOCRIT 39.5 % (37.0-47.0); LYMPH# 1.18 K/mm3 (1.50-4.00); MEAN CELL VOLUME 90 fl (78-100); MEAN CORPUSCULAR HEMOGLOBIN 30 pg (27-31); MEAN CORPUSCULAR HGB CONC 33 g/dL (33-37); MEAN PLATELET VOLUME 12.3 fl (7.4-10.4); MONO # 0.36 K/mm3 (0.20-0.80); NEU # 1.82 K/mm3 (1.40-6.50); RED BLOOD COUNT 4.37 M/mm3 (4.10-5.30); RED CELL DISTRIBUTION WIDTH 13.5 % (11.5-14.5); WHITE BLOOD COUNT 3.6 K/mm3 (4.8-10.8)
[2022-04-26 07:46] LABS: TOTAL PROTEIN 7.1 g/dL (6.4-8.3)
[2022-04-26 07:48] LABS: TOTAL BILIRUBIN 0.4 mg/dL (0.2-1.2)
[2022-04-26 07:49] LABS: URINE APPEARANCE HAZY; URINE BILIRUBIN NEGATIVE (NEGATIVE); URINE BLOOD NEGATIVE (NEGATIVE); URINE COLOR YELLOW; URINE KETONE NEGATIVE (NEGATIVE); URINE LEUKOCYTE ESTERASE 2+ (NEGATIVE); URINE NITRATE NEGATIVE (NEGATIVE); URINE PROTEIN(semi-quant) NEGATIVE (NEGATIVE); URINE UROBILINOGEN NORMAL (NORMAL)
== END ==
LOC: LAB 07:19
PROVIDERS: Internal Medicine
DX: M81.0 Age-related osteoporosis without current pathological fracture (principal); E13.628 Other specified diabetes mellitus with other skin complications; N39.0 Urinary tract infection, site not specified

== ENCOUNTER → 2022-05-25 | Outpatient (CLI) | payer MEDICARE, MEDICAID | LOC: MAMMO 08:17 | DX: Z13.820 Encounter for screening for osteoporosis (principal); M81.0 Age-related osteoporosis without current pathological fracture ==

== ENCOUNTER → 2022-06-30 | Outpatient (CLI) | payer MEDICARE, MEDICAID ==
[2022-06-30 10:08] LABS: BASO # 0.04 K/mm3 (0.02-0.10); EOS # 0.26 K/mm3 (0.04-0.40); EOS % 6.6 % (1.0-5.0); HEMATOCRIT 38.5 % (37.0-47.0); HEMOGLOBIN 12.6 g/dL (12.5-16.0); LYMPH# 1.22 K/mm3 (1.50-4.00); MEAN CELL VOLUME 93 fl (78-100); MEAN CORPUSCULAR HEMOGLOBIN 30 pg (27-31); MEAN CORPUSCULAR HGB CONC 33 g/dL (33-37); MEAN PLATELET VOLUME 10.1 fl (7.4-10.4); MONO # 0.45 K/mm3 (0.20-0.80); NEU # 1.96 K/mm3 (1.40-6.50); PLATELET COUNT 174 K/mm3 (130-400); RED BLOOD COUNT 4.15 M/mm3 (4.10-5.30); RED CELL DISTRIBUTION WIDTH 14.3 % (11.5-14.5); WHITE BLOOD COUNT 3.9 K/mm3 (4.8-10.8)
[2022-06-30 10:10] LABS: POTASSIUM 5.1 mmol/L (3.5-5.1)
[2022-06-30 10:11] LABS: ALBUMIN 3.9 g/dL (3.5-5.0)
[2022-06-30 10:13] LABS: TOTAL PROTEIN 7.1 g/dL (6.4-8.3)
[2022-06-30 10:15] LABS: TOTAL BILIRUBIN 0.4 mg/dL (0.2-1.2)
[2022-06-30 10:20] LABS: MAGNESIUM 1.89 mg/dL (1.60-2.60)
== END ==
LOC: LAB 09:45
PROVIDERS: Internal Medicine
DX: L97.329 Non-pressure chronic ulcer of left ankle with unspecified severity (principal); M19.90 Unspecified osteoarthritis, unspecified site; M81.0 Age-related osteoporosis without current pathological fracture; G63 Polyneuropathy in diseases classified elsewhere; E55.9 Vitamin D deficiency, unspecified; I10 Essential (primary) hypertension; K90.9 Intestinal malabsorption, unspecified; E78.2 Mixed hyperlipidemia; E13.628 Other specified diabetes mellitus with other skin complications; E03.4 Atrophy of thyroid (acquired); M10.9 Gout, unspecified; G89.29 Other chronic pain; K21.9 Gastro-esophageal reflux disease without esophagitis

== ENCOUNTER → 2022-12-13 | Outpatient (CLI) | payer MEDICARE, MEDICAID ==
[2022-12-13 09:25] LABS: ALBUMIN 3.6 g/dL (3.5-5.0); POTASSIUM 4.7 mmol/L (3.5-5.1)
[2022-12-13 09:26] LABS: CALCIUM 9.3 mg/dL (8.3-10.5)
[2022-12-13 09:30] LABS: TOTAL BILIRUBIN 0.4 mg/dL (0.2-1.2)
== END ==
LOC: LAB 09:09
PROVIDERS: Internal Medicine
DX: E78.2 Mixed hyperlipidemia (principal)

== ENCOUNTER → 2023-01-20 | Outpatient (CLI) | payer MEDICARE | LOC: MAMMO 08:48 | DX: Z12.31 Encounter for screening mammogram for malignant neoplasm of breast (principal) ==

== ENCOUNTER → 2023-09-14 | Outpatient (CLI) | payer MEDICARE, MEDICAID ==
[2023-09-14 17:27] LABS: BASO # 0.03 K/mm3 (0.02-0.10); EOS # 0.18 K/mm3 (0.04-0.40); EOS % 4.9 % (1.0-5.0); HEMATOCRIT 36.9 % (37.0-47.0); HEMOGLOBIN 11.8 g/dL (12.5-16.0); LYMPH# 1.12 K/mm3 (1.50-4.00); MEAN CELL VOLUME 93 fl (78-100); MEAN CORPUSCULAR HEMOGLOBIN 30 pg (27-31); MEAN CORPUSCULAR HGB CONC 32 g/dL (33-37); MEAN PLATELET VOLUME 9.3 fl (7.4-10.4); NEU # 1.94 K/mm3 (1.40-6.50); PLATELET COUNT 235 K/mm3 (130-400); RED BLOOD COUNT 3.97 M/mm3 (4.10-5.30); RED CELL DISTRIBUTION WIDTH 13.9 % (11.5-14.5); WHITE BLOOD COUNT 3.7 K/mm3 (4.8-10.8)
[2023-09-14 17:30] LABS: ALBUMIN 3.6 g/dL (3.5-5.0)
[2023-09-14 17:31] LABS: CALCIUM 9.3 mg/dL (8.3-10.5)
[2023-09-14 17:33] LABS: TOTAL PROTEIN 6.5 g/dL (6.4-8.3)
[2023-09-14 17:34] LABS: TOTAL BILIRUBIN 0.3 mg/dL (0.2-1.2)
[2023-09-14 17:39] LABS: MAGNESIUM 1.73 mg/dL (1.60-2.60)
== END ==
LOC: LAB 16:55
PROVIDERS: Internal Medicine
DX: E13.628 Other specified diabetes mellitus with other skin complications (principal); I10 Essential (primary) hypertension; K90.9 Intestinal malabsorption, unspecified; E03.4 Atrophy of thyroid (acquired)

== ENCOUNTER → 2024-02-09 | Outpatient (CLI) | payer MEDICARE, MEDICAID ==
[2024-02-09 09:51] LABS: BASO # 0.03 K/mm3 (0.02-0.10); EOS # 0.22 K/mm3 (0.04-0.40); EOS % 4.7 % (1.0-5.0); HEMOGLOBIN 14.6 g/dL (12.5-16.0); MEAN CELL VOLUME 91 fl (78-100); MEAN CORPUSCULAR HEMOGLOBIN 31 pg (27-31); MEAN CORPUSCULAR HGB CONC 34 g/dL (33-37); MEAN PLATELET VOLUME 10.6 fl (7.4-10.4); MONO # 0.44 K/mm3 (0.20-0.80); NEU # 2.67 K/mm3 (1.40-6.50); PLATELET COUNT 212 K/mm3 (130-400); RED BLOOD COUNT 4.71 M/mm3 (4.10-5.30); RED CELL DISTRIBUTION WIDTH 14.4 % (11.5-14.5); WHITE BLOOD COUNT 4.7 K/mm3 (4.8-10.8)
[2024-02-09 09:54] LABS: ALBUMIN 4.1 g/dL (3.4-4.8)
[2024-02-09 09:56] LABS: CALCIUM 9.7 mg/dL (8.3-10.5)
[2024-02-09 09:57] LABS: TOTAL PROTEIN 7.5 g/dL (6.2-8.1)
[2024-02-09 09:59] LABS: TOTAL BILIRUBIN 0.5 mg/dL (0.2-1.2)
[2024-02-09 10:01] LABS: URINE APPEARANCE SLIGHTLY CLOUDY (CLEAR); URINE BILIRUBIN NEGATIVE (NEGATIVE); URINE BLOOD NEGATIVE (NEGATIVE); URINE COLOR YELLOW (YELLOW); URINE GLUCOSE 3+ (NEGATIVE); URINE KETONE NEGATIVE (NEGATIVE); URINE LEUKOCYTE ESTERASE 1+ (NEGATIVE); URINE NITRATE NEGATIVE (NEGATIVE); URINE PROTEIN(semi-quant) NEGATIVE (NEGATIVE)
[2024-02-09 10:04] LABS: MAGNESIUM 2.09 mg/dL (1.60-2.60)
== END ==
LOC: LAB 09:18
PROVIDERS: Internal Medicine
DX: I10 Essential (primary) hypertension (principal); M81.0 Age-related osteoporosis without current pathological fracture; K90.9 Intestinal malabsorption, unspecified; E11.9 Type 2 diabetes mellitus without complications; E03.4 Atrophy of thyroid (acquired); M10.9 Gout, unspecified

== ENCOUNTER → 2024-02-29 | Outpatient (CLI) | payer MEDICARE, MEDICAID | LOC: RAD 11:27 | DX: M17.11 Unilateral primary osteoarthritis, right knee (principal); W19.XXXA Unspecified fall, initial encounter ==

== ENCOUNTER → 2024-06-13 | Outpatient (CLI) | payer MEDICARE, MEDICAID ==
[2024-06-13 10:15] LABS: BASO # 0.01 K/mm3 (0.02-0.10); EOS # 0.23 K/mm3 (0.04-0.40); EOS % 5.7 % (1.0-5.0); HEMOGLOBIN 12.3 g/dL (12.5-16.0); LYMPH# 0.99 K/mm3 (1.50-4.00); MEAN CELL VOLUME 92 fl (78-100); MEAN CORPUSCULAR HEMOGLOBIN 30 pg (27-31); MEAN CORPUSCULAR HGB CONC 32 g/dL (33-37); MEAN PLATELET VOLUME 9.4 fl (7.4-10.4); MONO # 0.46 K/mm3 (0.20-0.80); NEU # 2.34 K/mm3 (1.40-6.50); PLATELET COUNT 167 K/mm3 (130-400); RED BLOOD COUNT 4.12 M/mm3 (4.10-5.30); RED CELL DISTRIBUTION WIDTH 15.2 % (11.5-14.5)
[2024-06-13 10:22] LABS: ALBUMIN 3.7 g/dL (3.4-4.8)
[2024-06-13 10:23] LABS: CALCIUM 9.2 mg/dL (8.3-10.5)
[2024-06-13 10:25] LABS: TOTAL PROTEIN 7.3 g/dL (6.2-8.1)
[2024-06-13 10:27] LABS: TOTAL BILIRUBIN 0.3 mg/dL (0.2-1.2)
[2024-06-13 10:31] LABS: MAGNESIUM 1.65 mg/dL (1.60-2.60)
== END ==
LOC: LAB 09:58
PROVIDERS: Internal Medicine
DX: K90.9 Intestinal malabsorption, unspecified (principal); E78.2 Mixed hyperlipidemia; E11.9 Type 2 diabetes mellitus without complications; I10 Essential (primary) hypertension